=== PATIENT | female | born 1950 | race Caucasian/White ===

== ENCOUNTER 2018-06-25 05:30 | Inpatient (IN) | payer MEDICARE, BC ==
[2018-06-25] MEDS ORDERED: LACTATED RINGER'S 1,000 ML IV (06:00)
[2018-06-25] MEDS: CEFAZOLIN 2 GM/50 ML (PMX) 50 ML IVPB (06:50)
[2018-06-25] MEDS ORDERED: SURGIFOAM POWDER 1 GM KIT ×2 (06:54→07:02)
[2018-06-25] MEDS ORDERED: SEVOFLURANE 15 MIN (07:00)
[2018-06-25] MEDS ORDERED: THROMBIN (BOVINE) 5,000 UNIT VIAL TP (07:02)
[2018-06-25] MEDS ORDERED: BUPIVACAINE 0.25%/EPI (SDV) 30 ML INJ (07:02)
[2018-06-25] MEDS ORDERED: MIDAZOLAM 1 MG/ML 2 ML INJ (07:06)
[2018-06-25] MEDS: BUPIVACAINE 0.25% (MPF) 30 ML INJ (08:21)
[2018-06-25] MEDS: POLYMYXIN/BACITRACIN 1L IRRIG (08:21)
[2018-06-25] MEDS: GELATIN SIZE 100 SPONGE (08:56)
[2018-06-25] MEDS: THROMBIN (BOVINE) 5,000 UNIT VIAL TP (08:57)
[2018-06-25] MEDS ORDERED: ONDANSETRON 4 MG INJ ×2 (09:50→10:31)
[2018-06-25] MEDS ORDERED: METOCLOPRAMIDE 10 MG INJ (09:50)
[2018-06-25] MEDS ORDERED: DEXAMETHASONE 4 MG/ML 5 ML INJ (09:50)
[2018-06-25] MEDS ORDERED: PROPOFOL 20 ML (10:14)
[2018-06-25] MEDS ORDERED: LIDOCAINE 2% (SDV) 5 ML INJ (10:14)
[2018-06-25] MEDS ORDERED: NEOSTIGMINE 3 MG/3 ML SYRINGE (10:14)
[2018-06-25] MEDS ORDERED: ROCURONIUM 50 MG INJ (10:14)
[2018-06-25] MEDS ORDERED: GLYCOPYRROLATE 0.4 MG INJ (10:14)
[2018-06-25] MEDS ORDERED: ETOMIDATE 20 MG INJ (10:14)
[2018-06-25] MEDS ORDERED: FENTAnyl 50 MCG/ML VIAL IV (10:30)
[2018-06-25] MEDS ORDERED: DIPHENHYDRAMINE 50 MG INJ IV (10:30)
[2018-06-25] MEDS ORDERED: METOCLOPRAMIDE 10 MG INJ IV (10:30)
[2018-06-25] MEDS ORDERED: MEPERIDINE 25 MG INJ (10:31)
[2018-06-25] MEDS ORDERED: HYDROmorphONE 1 MG/5 ML IV SYRINGE IV (10:32)
[2018-06-25] MEDS: HYDROmorphONE 1 MG/5 ML IV SYRINGE IV ×3 (10:35→11:00)
[2018-06-25] MEDS: ONDANSETRON 4 MG INJ IV ×2 (10:35→16:33)
[2018-06-25] MEDS: MEPERIDINE 25 MG INJ IV (10:35)
[2018-06-25] MEDS ORDERED: DIAZEPAM 5 MG/ML SYG IM (11:00)
[2018-06-25] MEDS ORDERED: NACL 0.9% 3 ML SYG IV (11:00)
[2018-06-25] MEDS ORDERED: ACETAMINOPHEN 325 MG TAB PO (11:00)
[2018-06-25] MEDS ORDERED: BETHANECHOL 25 MG TAB PO (11:00)
[2018-06-25] MEDS ORDERED: ZOLPIDEM 5 MG TAB PO (11:00)
[2018-06-25] MEDS ORDERED: TRIMETHOBENZAMIDE 100 MG/ML VIAL IM (11:00)
[2018-06-25] MEDS ORDERED: DIPHENHYDRAMINE 50 MG CAP PO (11:00)
[2018-06-25] MEDS ORDERED: NALOXONE (0.4 MG/ML) INJ IV (11:00)
[2018-06-25] MEDS: HYDROmorphONE 0.2 MG/ML PCA IV ×2 (11:12→21:16)
[2018-06-25] MEDS: DEXTROSE 5%-0.45% NACL 1,000 ML IV ×2 (12:13→22:33)
[2018-06-25] MEDS: CEFAZOLIN 1 GM/50 ML (PMX) 50 ML IVPB ×3 (12:13→23:49)
[2018-06-25] MEDS: PROCHLORPERAZINE 10 MG TAB PO (13:06)
[2018-06-25] MEDS: [UNRECOGNIZED DRUG - OTHER] XX (19:00)
[2018-06-25] MEDS: RANITIDINE 150 MG TAB PO (21:13)
[2018-06-25] MEDS: SACCHAROMYCES BOULARDII 250 MG CAP PO (21:13)
[2018-06-25] MEDS: ZOLPIDEM 5 MG TAB PO (22:13)
[2018-06-25] MEDS: CEPASTAT LOZENGE MT (22:13)
[2018-06-26] MEDS: [UNRECOGNIZED DRUG - OTHER] XX ×3 (03:00→19:00)
[2018-06-26] MEDS: PANTOPRAZOLE (EC) 40 MG TAB PO (05:27)
[2018-06-26] MEDS: CEFAZOLIN 1 GM/50 ML (PMX) 50 ML IVPB (05:27)
[2018-06-26 05:55] LABS: HEMATOCRIT 36.5 % (37.0-47.0); HEMOGLOBIN 12.7 g/dl (12.0-16.0)
[2018-06-26 06:25] LABS: ANION GAP 6 (5-13); BLOOD UREA NITROGEN 11 mg/dl (7-20); CALCIUM 9.1 mg/dl (8.4-10.2); CARBON DIOXIDE 23 mmol/L (21-31); CHLORIDE 112 mmol/L (97-110); CREATININE 0.71 mg/dl (0.44-1.00); Estimated GFR > 60 mL/min (>60); GLUCOSE 139 mg/dl (70-220); POTASSIUM 4.3 mmol/L (3.5-5.1); SODIUM 141 mmol/L (135-144)
[2018-06-26] MEDS: DEXTROSE 5%-0.45% NACL 1,000 ML IV ×2 (06:34→16:34)
[2018-06-26] MEDS ORDERED: BETHANECHOL 25 MG TAB PO (08:00)
[2018-06-26] MEDS: SACCHAROMYCES BOULARDII 250 MG CAP PO ×2 (08:49→21:08)
[2018-06-26] MEDS: RANITIDINE 150 MG TAB PO ×2 (08:49→21:07)
[2018-06-26] MEDS: DOCUSATE SODIUM 100 MG CAP PO ×2 (08:49→21:07)
[2018-06-26] MEDS: ASCORBIC ACID 500 MG TAB PO ×2 (08:49→21:08)
[2018-06-26] MEDS: FERROUS SULFATE (EC) 325 MG TAB PO ×3 (08:49→21:07)
[2018-06-26] MEDS ORDERED: [UNRECOGNIZED DRUG - OTHER] PO (09:00)
[2018-06-26] MEDS ORDERED: ESTRADIOL PO (09:00)
[2018-06-26] MEDS ORDERED: NORETHINDRONE ACET PO (09:00)
[2018-06-26] MEDS: HYDROCODONE/APAP (5/325) TAB PO ×4 (09:47→19:45)
[2018-06-26] MEDS: CEPASTAT LOZENGE MT (10:48)
[2018-06-26] MEDS: PROCHLORPERAZINE 10 MG TAB PO (13:43)
[2018-06-26] MEDS: METOCLOPRAMIDE 10 MG INJ IV (16:59)
[2018-06-26] MEDS: AL HYDROX/MG HYDROX/SIMETH 30 ML CUP PO (19:46)
[2018-06-26] MEDS: ZOLPIDEM 5 MG TAB PO (21:41)
[2018-06-27] MEDS: DEXTROSE 5%-0.45% NACL 1,000 ML IV ×2 (02:34→12:34)
[2018-06-27] MEDS: [UNRECOGNIZED DRUG - OTHER] XX ×2 (02:41→11:00)
[2018-06-27] MEDS: METOCLOPRAMIDE 10 MG INJ IV (05:28)
[2018-06-27] MEDS: PANTOPRAZOLE (EC) 40 MG TAB PO (05:30)
[2018-06-27] MEDS: HYDROCODONE/APAP (5/325) TAB PO (05:33)
[2018-06-27] MEDS: RANITIDINE 150 MG TAB PO (08:58)
[2018-06-27] MEDS: DOCUSATE SODIUM 100 MG CAP PO (08:58)
[2018-06-27] MEDS: ASCORBIC ACID 500 MG TAB PO (08:58)
[2018-06-27] MEDS: SACCHAROMYCES BOULARDII 250 MG CAP PO (08:58)
[2018-06-27] MEDS: FERROUS SULFATE (EC) 325 MG TAB PO ×2 (08:58→13:00)
[2018-06-27] MEDS: DIAZEPAM 5 MG TAB PO (09:02)
[2018-06-27] MEDS: ONDANSETRON 4 MG INJ IV (11:37)
== END 2018-06-27 13:55 | disposition home or self-care (01) | DRG 517 ==
LOC: REC 05:30 → MS1 11:55
PROC: 01NB0ZZ Release Lumbar Nerve, Open Approach (ICD-10-PCS; principal; 2018-06-25 07:00)
PROC: 4A11X4G Monitoring of Peripheral Nervous Electrical Activity, Intraoperative, External Approach (ICD-10-PCS; 2018-06-25 07:00)
DX: M48.062 Spinal stenosis, lumbar region with neurogenic claudication (principal); Z78.0 Asymptomatic menopausal state; K58.9 Irritable bowel syndrome, unspecified; G47.00 Insomnia, unspecified; K21.9 Gastro-esophageal reflux disease without esophagitis; I10 Essential (primary) hypertension; J32.9 Chronic sinusitis, unspecified; E78.5 Hyperlipidemia, unspecified
CPT/HCPCS: 72020; 80048; 85014; 85018; 86850; 86900; 86901; 86920; 87086; 88304; 88311; 97110; 97116; 97162; 97530